=== PATIENT | female | born 1950 | race Caucasian/White ===

== ENCOUNTER 2016-09-03 06:21 | Emergency (ER) | payer OTHER ==
[2016-09-03 06:33] VITALS: BP 145/74
--- NOTE | 2016-09-03 06:56 | PROVIDER DOCUMENTATION ---
HPI-Abdominal Pain/GI Problem - General Chief Complaint: General Adult Stated Complaint: EXTREMITY PAIN Time Seen by Provider: 09/03/16 06:40 Source: patient Unable to obtain history due to:: urgency Allergies/Adverse Reactions: Patient Allergies Allergy/AdvReac Type Severity Reaction Status Date / Time No Known Allergies Allergy Verified 12/25/12 10:37 Home Medications: Home Medication List Medication Instructions Recorded Confirmed Last Taken Type Alprazolam 1 mg PO HS 12/25/12 09/03/16 12/24/12 18:00 History Acetaminophen with Codeine 1 each PO Q6H PRN PRN #30 tablet 09/03/16 Unknown Rx [Tylenol with Codeine #3 Tablet] Amitriptyline [Elavil] 1 tab PO HS 09/03/16 09/03/16 Unknown History Cyclobenzaprine [Flexeril] 10 mg PO TID PRN PRN #30 tablet 09/03/16 Unknown Rx Duloxetine [Cymbalta] 1 tab PO HS 09/03/16 09/03/16 Unknown History Lacosamide [Vimpat] 1 tab PO HS 09/03/16 09/03/16 Unknown History Natalizumab [Tysabri] 1 tab IV DIRECTED 09/03/16 09/03/16 Unknown History Pantoprazole [Protonix] 1 tab PO DAILY 09/03/16 09/03/16 Unknown History Promethazine [Phenergan] 1 - 2 tab PO Q6H PRN PRN #18 tablet 09/03/16 Unknown Rx Simvastatin 1 tab PO HS 09/03/16 09/03/16 Unknown History Zolpidem [Ambien] 1 tab PO HS 09/03/16 09/03/16 Unknown History - History of Present Illness-ABD Abdominal Pain Onset Location: reports: RUQ Quality of Pain: reports: cramping Severity in ED: reports: mild Onset/Duration: reports: 1 hour ago Activities at Onset: reports: light activity Exposure to sick contacts?: Yes Modifying Factors: improves with: analgesics Associated Symptoms: reports: anxiety, fatigue Dark Stools Present?: reports: none noticed Rectal Bleeding: reports: none Bruising or Bleeding Gums?: Yes Similar Symptoms Previously?: Yes Recently seen or treated by another doctor?: Yes Review of Systems - Adult - REVIEW OF SYSTEMS - ADULT Constitutional: reports: no symptoms reported Eyes: reports: no symptoms reported Ears, Nose, Mouth & Throat: reports: no symptoms reported Cardiovascular: reports: no symptoms reported Respiratory: reports: no symptoms reported Gastrointestinal: reports: no symptoms reported Genitourinary: reports: no symptoms reported Musculoskeletal: reports: no symptoms reported Integumentary: reports: no symptoms reported Neurological: reports: no symptoms reported Psychiatric: reports: no symptoms reported Endocrine: reports: no symptoms reported Hematologic/Lymphatic: reports: no symptoms reported Allergic/Immunologic: reports: no symptoms reported All Other Systems: Reviewed and Negative Past History - Adult - PAST MEDICAL HISTORY-ADULT Review of Records: reports: Old Records Reviewed, Nursing Assessment Review, Medications Reviewed, Social history reviewed & non-contributory. Major Childhood Illnesses: reports: denies history Cardiovascular: reports: denies history Respiratory: reports: denies history Gastrointestinal: reports: denies history Obstetrical/Gynecological: reports: denies history Genitourinary: reports: denies history Musculoskeletal: reports: denies history Neurological: reports: denies history Endocrine/Immune: reports: denies history Other Conditions: reports: denies history - FAMILY HISTORY Family History: reviewed, not pertinent Physical Exam-General - PHYSICAL EXAM-ADULT Initial Vital Signs Reviewed: Yes - CONSTITUTIONAL General Appearance: appears well - EYES Eyes: PERRL/EOMI - HEAD, EARS, NOSE, MOUTH & THROAT HENMT: normal ENT inspection - NECK Neck: non-tender - RESPIRATORY Respiratory: normal breath sounds - CARDIOVASCULAR Cardiovascular: normal peripheral pulses - GASTROINTESTINAL (ABDOMEN) Abdominal Exam: no organomegaly - MUSCULOSKELETAL Extremity: normal range of motion Departure - Departure Time of Disposition Order: 06:30 DIAGNOSIS: Nausea and vomiting in adult patient Disposition: HOME 01 Certified Medical Emergency: Emergent Condition: Stable Additional Instructions: ED Follow Up Instructions: You have been treated by a care provider in the Emergency Department. These instructions are being provided to you so you can have an understanding of how to care for yourself upon discharge. Upon discharge from the Emergency Department, you are responsible for making arrangements for follow-up care by a physician of your choice. Take all prescribed medications as directed. Return to the Emergency Department immediately for any new or worsening symptoms. You may call the Physician Referral phone number at [phone] to obtain a list of Physicians who are taking new patients. Referrals: Paige Mariscal MD [Primary Care Provider] - Forms: Return to School/Parent Work Instructions: Nausea, Adult
[2016-09-03 06:59] LABS: MANUAL DIFF NEEDED? NO
[2016-09-03 07:01] LABS: BASO% 0.7 % (0.0-0.8); EOS# 0.22 X1000 (0.0-0.7); HEMATOCRIT 35.6 % (37.0-47.0); HEMOGLOBIN 12.1 g/dL (12.0-16.0); IMM GRAN# 0.05 X1000 (0.0-0.04); IMM GRAN% 0.4 % (0.0-0.5); LYMPH# 3.18 X1000 (1.2-3.4); LYMPH% 28.3 % (20.5-51.1); MCH 28.2 PG (27-31); MONO# 0.81 X1000 (0.11-0.59); MONO% 7.2 % (1.7-9.3); MPV 9.8 FL (7.4-10.4); NEUT% 61.4 % (42.2-75.2); PLT 233 X1000 (130-400); RBC 4.29 XMIL (4.2-5.4)
[2016-09-03 07:09] LABS: URINE CULTURE PL NEEDED? NO; URINE SOURCE CLEAN CATCH
[2016-09-03 07:14] LABS: AGAP 12; ALBUMIN 4.4 g/dL (3.5-5.0); ALKALINE PHOSPHATASE 86 U/L (32-104); AMYLASE 52 U/L (20-200); BUN 12 mg/dL (8-22); CALCIUM 9.8 mg/dL (8.8-10.2); CHLORIDE 94 mmol/L (98-107); COSMO 268; GOT 22 U/L (10-30); GPT 14 U/L (10-36); LIPASE 26 U/L (13-60); POTASSIUM 4.3 mmol/L (3.5-5.1); SODIUM 133 mmol/L (136-145); TCO2 27 mmol/L (25-35); TOTAL PROTEIN 7.3 g/dL (6.3-8.3)
[2016-09-03] MEDS ORDERED: TORADOL IM ONE (07:18)
[2016-09-03] MEDS ORDERED: NORFLEX IM ONE (07:18)
[2016-09-03 07:23] LABS: BILIRUBIN URINE NEGATIVE (NEGATIVE); BLOOD URINE NEGATIVE (NEGATIVE); CLARITY VERY CLOUDY (CLEAR); COLOR YELLOW; GLUCOSE URINE NEGATIVE (NEGATIVE); LEUKOCYTES URINE TRACE (NEGATIVE); NITRITE URINE NEGATIVE (NEGATIVE); PROTEIN URINE NEGATIVE (NEGATIVE); SP GRAVITY URINE 1.015; UROBILINOGEN URINE NORMAL
[2016-09-03 07:25] LABS: URINE EPITHELIAL CELLS <10 /HPF (<10); URINE WBC <10 /HPF (<10)
== END 2016-09-03 07:59 | disposition home or self-care (01) ==
LOC: P.ED 06:21
DX: R11.2 Nausea with vomiting, unspecified (principal); R10.11 Right upper quadrant pain; R53.83 Other fatigue; F41.9 Anxiety disorder, unspecified; Z79.899 Other long term (current) drug therapy
CPT/HCPCS: 36415; 80053; 81001; 82150; 83690; 83735; 85025; 96372; J1885; J2360

== ENCOUNTER 2016-09-03 13:35 | Emergency (ER) | payer OTHER ==
--- NOTE | 2016-09-03 15:47 | PROVIDER DOCUMENTATION ---
HPI-Musculoskeletal Pain/Inj - GENERAL Source: patient - HX OF PRESENT ILLNESS-MUSKULOSKELTAL Quality of Pain: reports: aching Severity in ED: mild Onset/Duration: unsure Timing: still present, intermittent Modifying Factors: improves with: nothing Any recent injury?: No Locality of Occurance: Home Similar Symptoms Previously?: Yes Recently seen or treated by another doctor?: Yes - FALL INJURY Location of Pain/Injury: reports: none - LOWER EXTREMITY PAIN/INJURY Lower Extremities Pain: leg: bilateral (pain ) Context / Method of Injury: reports: unknown Associated Symptoms: reports: weakness in legs/feet (bilateral). denies: loss of bladder control, loss of bowel control, lower back pain, muscle spasms, numbness in legs/feet, sensory/motor loss, tingling in legs/feet <Sveta Xiong - Last Filed: 09/03/16 16:38> <Jean Retana - Last Filed: 09/03/16 16:43> - GENERAL Chief Complaint: Return/Recheck Stated Complaint: RETURN/RECHECK Time Seen by Provider: 09/03/16 15:16 - HX OF PRESENT ILLNESS-MUSKULOSKELTAL Nature of Presenting Problem: Pt is 66 y/o F presents to the ED with bilateral leg pain. Pt states having MS. Pt denies recent injury or trauma. Pt states being in ED this am. Pt states N and V. (Sveta Xiong) Review of Systems - Adult - REVIEW OF SYSTEMS - ADULT Constitutional: reports: fever. denies: chills Eyes: denies: blurred vision, double vision Ears, Nose, Mouth & Throat: denies: ear pain, nose pain, throat pain Cardiovascular: denies: chest pain, heart murmur, irregular heart rate Respiratory: denies: cough, shortness of breath, wheezing Gastrointestinal: reports: nausea, vomiting. denies: abdominal pain, diarrhea Genitourinary: denies: dysuria, hematuria Musculoskeletal: reports: other (bilateral leg pain). denies: bone pain, joint pain, neck pain Integumentary: denies: hives, itching Neurological: denies: dizziness/vertigo, headache/migraines Psychiatric: reports: no symptoms reported Endocrine: reports: no symptoms reported Hematologic/Lymphatic: reports: no symptoms reported Allergic/Immunologic: reports: no symptoms reported All Other Systems: Reviewed and Negative <Shivani Xiongi - Last Filed: 09/03/16 16:38> Past History - Adult - PAST MEDICAL HISTORY-ADULT Review of Records: reports: Nursing Assessment Review, Medications Reviewed, Social history reviewed & non-contributory. Major Childhood Illnesses: reports: denies history Cardiovascular: reports: denies history Respiratory: reports: denies history Gastrointestinal: reports: denies history Obstetrical/Gynecological: reports: denies history Genitourinary: reports: denies history Musculoskeletal: reports: denies history Neurological: reports: denies history Endocrine/Immune: reports: denies history Other Conditions: reports: denies history - PRIOR SURGERIES/PROCEDURES Surgical/Procedure History: reports: appendectomy, tonsillectomy - IMMUNIZATION STATUS Childhood Immunizations: See Nurse Assessment Flu Vaccine: See Nurse Assessment - FAMILY HISTORY Family History: reviewed, not pertinent - SOCIAL HISTORY Smoking: cigarettes, less than 1 pack/day Provider spent 3-5 mins advising pt. on dangers of tobacco.: Discussed manners to quit use, and f/u contacts for add'l counseling. Substance Use: denies Living Situation: family <Shivani Xiongi - Last Filed: 09/03/16 16:38> Physical Exam-Injury Related - Physical Exam-Injury Related Initial Vital Signs Reviewed: Yes General Appearance: appears well, alert, no apparent distress Eyes: PERRL/EOMI, pink conjunctivae, fundi clear, no AV nicking Head, Ears, Nose, Mouth & Throat: normocephalic/atraumatic, moist mucous membranes, normal ENT inspection, TMs normal, pharynx normal Neck: non-tender, full range of motion, supple, normal inspection Respiratory: chest non-tender, lungs clear, normal breath sounds, no pleuratic chest pain, no respiratory distress, no accessory muscle use Cardiovascular: normal peripheral pulses, regular rate, rhythm, no edema, no gallop, no JVD, no murmur Abdominal Exam: normal bowel sounds, non tender, soft, no organomegaly, no pulsatile mass Lymphatic: no adenopathy Back Exam: normal inspection, no CVA tenderness, no vertebral tenderness Extremity: normal range of motion, non-tender, normal gait, normal inspection, no pedal edema, no calf tenderness, normal capillary refill, pelvis stable Integumentary: normal color, warm/dry 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: 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 II-XII nml as tested, grossly normal, no motor/sensory deficits Psych/Mental Status: normal mood/affect, normal thought content, normal thought process, oriented x 3 <Sveta Xiong - Last Filed: 09/03/16 16:38> Progress <Sveta Xiong - Last Filed: 09/03/16 16:38> <MazinJean - Last Filed: 09/03/16 16:43> - PLAN OF CARE/RESULTS Progress/Plan/Lab Results: Laboratory Tests 09/03/16 13:41 Influenza A (Rapid) NEGATIVE Influenza B (Rapid) NEGATIVE Orders Category Date Time Status CBC WITH DIFF [HEME] Stat Lab 09/03/16 15:32 Ordered CK PROFILE [SP CHEM] Stat Lab 09/03/16 15:32 Ordered CMP [COMPREHENSIVE METABOLIC PANEL] [CHEM] Stat Lab 09/03/16 15:32 Ordered Flu [INFLUENZA SCREEN PL] Stat Lab 09/03/16 13:41 Completed Vital Signs - 24 hr 09/03/16 13:41 Temperature 100.6 F H Pulse Rate 86 Respiratory 20 Rate Blood Pressure 148/87 O2 Sat by Pulse 98 Oximetry Laboratory Tests 09/03/16 09/03/16 09/03/16 13:41 15:30 15:30 WBC 11.07 H RBC 4.33 Hgb 12.1 Hct 35.7 L MCV 82.4 MCH 27.9 MCHC 33.9 RDW Std Deviation 12.4 Plt Count 222 MPV 10.3 Immature Gran % (Auto) 0.2 Neut % (Auto) 45.1 Lymph % (Auto) 40.7 Logan % (Auto) 11.7 H Eos % (Auto) 1.6 Baso % (Auto) 0.7 Immature Gran # (Auto) 0.02 Neut # (Auto) 4.99 Lymph # (Auto) 4.51 H Logan # (Auto) 1.29 H Eos # (Auto) 0.18 Baso # (Auto) 0.08 Sodium 127 L Potassium 3.5 D Chloride 90 L Carbon Dioxide 26 Anion Gap 11 BUN 14 Creatinine 0.9 Estimated GFR/1.73 m2 > 60 BUN/Creatinine Ratio 16 Glucose 99 Calculated Osmolality 256 Calcium 9.4 Total Bilirubin 0.60 AST 23 ALT 13 Alkaline Phosphatase 84 Creatine Kinase 186 H Total Protein 7.0 Albumin 4.1 Globulin 3.0 Albumin/Globulin Ratio 1.0 Influenza A (Rapid) NEGATIVE Influenza B (Rapid) NEGATIVE (Sveta Xiong) Departure <Sveta Xiong - Last Filed: 09/03/16 16:38> - Departure Time of Disposition Order: 16:39 Certified Medical Emergency: Emergent <Jean Retana - Last Filed: 09/03/16 16:43> - Departure DIAGNOSIS: Leg pain Qualifiers: Laterality: bilateral Qualified Code(s): M79.604 - Pain in right leg; M79.605 - Pain in left leg Disposition: HOME 01 Condition: Stable Additional Instructions: ED Follow Up Instructions: You have been treated by a care provider in the Emergency Department. These instructions are being provided to you so you can have an understanding of how to care for yourself upon discharge. Upon discharge from the Emergency Department, you are responsible for making arrangements for follow-up care by a physician of your choice. Take all prescribed medications as directed. Return to the Emergency Department immediately for any new or worsening symptoms. You may call the Physician Referral phone number at [phone] to obtain a list of Physicians who are taking new patients. Prescriptions: Acetaminophen with Codeine [Tylenol with Codeine #3 Tablet] 1 each PO Q6H PRN PRN #30 tablet PRN Reason: Pain Cyclobenzaprine [Flexeril] 10 mg PO TID PRN PRN #30 tablet PRN Reason: Pain Promethazine [Phenergan] 1 - 2 tab PO Q6H PRN PRN #18 tablet PRN Reason: Vomiting Referrals: Paige Mariscal MD [Primary Care Provider] - Attestation - Scribe Verification/Attestation Scribe:: Sveta Xiong Acting as Scribe for:: Chidi Haro Scribe documention review:: This chart was documented by a scribe and accurately reflects the service the provider performed and the decisions made by the provider. <Sveta Xiong - Last Filed: 09/03/16 16:38> Physician Attestation
[2016-09-03 16:03] LABS: MANUAL DIFF NEEDED? NO
[2016-09-03 16:05] LABS: BASO% 0.7 % (0.0-0.8); EOS# 0.18 X1000 (0.0-0.7); EOS% 1.6 % (0.0-10.0); HEMATOCRIT 35.7 % (37.0-47.0); HEMOGLOBIN 12.1 g/dL (12.0-16.0); IMM GRAN# 0.02 X1000 (0.0-0.04); IMM GRAN% 0.2 % (0.0-0.5); LYMPH# 4.51 X1000 (1.2-3.4); LYMPH% 40.7 % (20.5-51.1); MCH 27.9 PG (27-31); MCHC 33.9 g/dL (33-37); MCV 82.4 FL (81-99); MONO# 1.29 X1000 (0.11-0.59); MONO% 11.7 % (1.7-9.3); MPV 10.3 FL (7.4-10.4); NEUT% 45.1 % (42.2-75.2); PLT 222 X1000 (130-400); RBC 4.33 XMIL (4.2-5.4)
[2016-09-03 16:24] LABS: AGAP 11; ALBUMIN 4.1 g/dL (3.5-5.0); ALKALINE PHOSPHATASE 84 U/L (32-104); BUN 14 mg/dL (8-22); CALCIUM 9.4 mg/dL (8.8-10.2); CHLORIDE 90 mmol/L (98-107); COSMO 256; GOT 23 U/L (10-30); GPT 13 U/L (10-36); POTASSIUM 3.5 mmol/L (3.5-5.1); SODIUM 127 mmol/L (136-145); TCO2 26 mmol/L (25-35)
[2016-09-03 16:25] LABS: CK PROFILE 186 U/L (24-173)
[2016-09-03] MEDS ORDERED: TORADOL IM ONE (16:26)
[2016-09-03] MEDS ORDERED: PHENERGAN IM ONE (16:37)
[2016-09-03 16:55] LABS: CK INDEX 2.1 (0.0-2.5); CK-MB 3.92 ng/mL (0.0-5.0)
[2016-09-03 17:03] VITALS: BP 131/74
== END 2016-09-03 17:03 | disposition home or self-care (01) ==
LOC: P.ED 13:35
DX: M79.605 Pain in left leg (principal); M79.604 Pain in right leg; R11.2 Nausea with vomiting, unspecified; G35 Multiple sclerosis; R50.9 Fever, unspecified; F17.210 Nicotine dependence, cigarettes, uncomplicated; Z71.6 Tobacco abuse counseling; Z79.899 Other long term (current) drug therapy
CPT/HCPCS: 80053; 82550; 82553; 85025; 87804; 96372; J1885; J2550